=== PATIENT | male | born 1980 | race Two or more races ===

== ENCOUNTER 2024-11-22 08:00 | Day surgery (SDC) | payer OTHER ==
[2024-11-22] MEDS ORDERED: CEFAZOLIN SODIUM 1,000 MG VIAL IV ONE (09:45)
[2024-11-22] MEDS ORDERED: BUPIVACAINE HCL 30 ML VIAL IJ ONE (09:45)
[2024-11-22] MEDS ORDERED: LIDOCAINE HCL 1%/EPINEPHRINE 20ML VIAL IJ ONE (09:45)
[2024-11-22] MEDS ORDERED: LIDOCAINE HCL 1% 20 ML VIAL IJ ONE (09:45)
[2024-11-22] MEDS ORDERED: HEPARIN SODIUM,PORCINE 500 UNITS/5 ML VIAL IV ONE (09:45)
[2024-11-22] MEDS ORDERED: TRAM1TAB98 PO (10:13)
== END 2024-11-22 12:15 | disposition home or self-care (01) ==
LOC: CIR.AMB 08:00
PROVIDERS: ATTEND Surgery
DX: C18.7 Malignant neoplasm of sigmoid colon (principal); C78.7 Secondary malignant neoplasm of liver and intrahepatic bile duct
CPT/HCPCS: 36561; C1751

== ENCOUNTER → 2024-12-08 | Emergency (ER) | payer OTHER ==
[~2024-12-08] MED LIST: TRAM1TAB98 PO
== END | disposition left against medical advice (07) ==
LOC: ER 14:08
DX: Z53.21 Procedure and treatment not carried out due to patient leaving prior to being seen by health care provider (principal)